=== PATIENT | female | born 1980 | race Caucasian/White ===

== ENCOUNTER 2019-05-28 14:39 | Emergency (ER) | payer MEDICAID ==
[~2019-05-28] VITALS: Ht 144.8 cm; Wt 86.6 kg
[2019-05-28 14:44] VITALS: BP 140/84
[2019-05-28] MEDS ORDERED: ONDANSETRON 4 MG/2 ML VIAL IVP ONE (15:15)
[2019-05-28] MEDS ORDERED: NACL 0.9% 1,000 ML IV ONE (15:15)
[2019-05-28] MEDS ORDERED: MORPHINE SULFATE 4 MG/ML SYR IVP ONE (16:05)
[2019-05-28 16:41] LABS: BASOPHILS # (AUTO) 0.1 K/uL (0.00-0.22); BASOPHILS % (AUTO) 1.1 % (0.0-2.0); EOSINOPHILS % (AUTO) 0.5 % (0.0-4.0); HEMATOCRIT 38.4 % (36-48); HEMOGLOBIN 13.1 g/dL (12.0-16.0); LYMPHOCYTES # (AUTO) 0.7 K/uL (2.5-16.5); LYMPHOCYTES % (AUTO) 11.6 % (20.5-51.1); MEAN CORPUSCULAR HEMOGLOBIN 29 pg (27-31); MEAN CORPUSCULAR HGB CONC 34 g/dL (33-37); MEAN CORPUSCULAR VOLUME 84.3 fL (80-94); MONOCYTES # (AUTO) 0.2 K/uL (0.8-1.0); MONOCYTES % (AUTO) 4.1 % (1.7-9.3); NEUTROPHILS # (AUTO) 4.9 K/uL (1.8-7.7); NEUTROPHILS % (AUTO) 82.7 % (42.2-75.2); PLATELET COUNT (AUTO) 179 K/uL (140-450); RED BLOOD CELL COUNT(AUTO) 4.56 MIL/uL (4.20-5.40); RED CELL DISTRIBUTION WIDTH 13.6 % (11.6-13.7)
[2019-05-28 17:10] LABS: ALBUMIN 3.3 g/dL (3.4-5.0); ANION GAP 13.6 (8-16); CREATININE 0.6 mg/dL (0.6-1.3); POTASSIUM 3.6 mmol/L (3.5-5.1); TOTAL BILIRUBIN 0.5 mg/dL (0.0-1.0)
[2019-05-28] MEDS ORDERED: KETOROLAC 30 MG/ML VIAL IVP ONE (17:15)
[2019-05-28] MEDS ORDERED: ACETAMINOPHEN EXTRA STRENGTH 500 MG TAB PO ONE (17:15)
[2019-05-28] MEDS ORDERED: ALUMINUM HYD/MAG/SIMETHICONE 30 ML, DICYCLOMINE HCL LIQUID 20 MG, LIDOCAINE VISCOUS 2% ... PO ONE ×3 (17:55)
[2019-05-28 18:51] VITALS: BP 108/56
== END 2019-05-28 18:51 | disposition home or self-care (01) ==
LOC: MED 14:39
DX: R11.2 Nausea with vomiting, unspecified (principal); R10.13 Epigastric pain; Z98.890 Other specified postprocedural states
CPT/HCPCS: 36415; 80053; 81002; 81025; 83690; 85025; 96361; 96374; 96375; 99283; J1885; J2270; J2405

== ENCOUNTER 2020-03-12 12:44 | Emergency (ER) | payer MEDICAID ==
[~2020-03-12] VITALS: Ht 144.8 cm; Wt 87.1 kg
[2020-03-12 12:45] VITALS: BP 181/108
--- NOTE | 2020-03-12 12:52 | NUR ---
Pt ambulated to bed 2.
--- NOTE | 2020-03-12 13:01 | NUR ---
Dr. Platt is evaluating the patient at bedside.
[2020-03-12] MEDS ORDERED: KETOROLAC 30 MG/ML VIAL IM ONE (13:10)
--- NOTE | 2020-03-12 13:19 | NUR ---
39 Y/O F C/C LEFT WRIST PAIN X 2 WEEKS. PER PT PAIN 10/10, SHARP SENSATION. ROM/CMS WNL. PT HX OF RIGHT WRIST SX OF CARPAL TUNNEL 2015. PT NKA. NO HX. NO RX. NO NVD. SIDE RAIL X1.
[2020-03-12 14:33] VITALS: BP 160/92
--- NOTE | 2020-03-12 14:34 | NUR ---
Patient discharged with v/s stable. Written and verbal after care instructions given and explained. Patient verbalized understanding. Ambulatory with steady gait. All questions addressed prior to discharge. Advised to follow up with PMD.
== END 2020-03-12 14:34 | disposition home or self-care (01) ==
LOC: MED 12:44
DX: G56.02 Carpal tunnel syndrome, left upper limb (principal)
CPT/HCPCS: 29125; 81025; 96372; 99283; J1885

== ENCOUNTER 2021-02-12 16:09 | Emergency (ER) | payer MEDICAID ==
[~2021-02-12] VITALS: Ht 144.8 cm; Wt 93.9 kg
[2021-02-12 17:10] VITALS: BP 162/113
[2021-02-12 17:41] LABS: BASOPHILS % (AUTO) 0.6 % (0.0-2.0); EOSINOPHILS # (AUTO) 0.1 K/uL (0-0.4); EOSINOPHILS % (AUTO) 1.6 % (0.0-4.0); HEMATOCRIT 37.1 % (36-48); HEMOGLOBIN 12.8 g/dL (12.0-16.0); LYMPHOCYTES # (AUTO) 2.7 K/uL (2.5-16.5); LYMPHOCYTES % (AUTO) 37.2 % (20.5-51.1); MEAN CORPUSCULAR HEMOGLOBIN 29 pg (27-31); MEAN CORPUSCULAR HGB CONC 35 g/dL (33-37); MEAN CORPUSCULAR VOLUME 84.7 fL (80-94); MONOCYTES # (AUTO) 0.5 K/uL (0.8-1.0); MONOCYTES % (AUTO) 6.5 % (1.7-9.3); NEUTROPHILS # (AUTO) 3.9 K/uL (1.8-7.7); NEUTROPHILS % (AUTO) 54.1 % (42.2-75.2); PLATELET COUNT (AUTO) 204 K/uL (140-450); RED BLOOD CELL COUNT(AUTO) 4.38 MIL/uL (4.20-5.40); RED CELL DISTRIBUTION WIDTH 14.1 % (11.6-13.7); WHITE BLOOD COUNT (AUTO) 7.3 K/uL (4.8-10.8)
[2021-02-12 17:57] LABS: ALBUMIN 3.6 g/dL (3.4-5.0); CARBON DIOXIDE 27.5 mmol/L (21-32); CREATININE 0.7 mg/dL (0.6-1.3); POTASSIUM 3.5 mmol/L (3.5-5.1); TOTAL BILIRUBIN 0.3 mg/dL (0.0-1.0)
[2021-02-12] MEDS ORDERED: IBUP-2213 PO (19:08)
== END 2021-02-12 20:10 | disposition home or self-care (01) ==
LOC: MED 16:09
DX: R60.0 Localized edema (principal); R03.0 Elevated blood-pressure reading, without diagnosis of hypertension
CPT/HCPCS: 36415; 71045; 80053; 81002; 81025; 83880; 85025; 99284

== ENCOUNTER 2021-06-14 16:25 | Emergency (ER) | payer MEDICAID ==
[~2021-06-14] VITALS: Ht 170.2 cm; Wt 93.5 kg
[~2021-06-14 16:25] MED LIST: IBUP-2213 PO
[2021-06-14 16:33] VITALS: BP 142/82
--- NOTE | 2021-06-14 16:36 | NUR ---
PATIENT AMBULATED TO BED 10.
--- NOTE | 2021-06-14 16:55 | NUR ---
40 Y/O FEMALE BIB SELF. PATIENT PRESENTS TO ED WITH HEAD PAIN, ABD TENDERNESS AND BLOATING, AND LOWER EXTREMETY EDEMA X2 DAYS. PT STATES HER HEAD PAIN RADIATES FROM THE BACK TO HER EYES. CMS PRESENT IN ALL LIMBS; DENIES N/V/D; SKIN IS PINK/WARM/DRY; AAOX4 WITH EVEN AND STEADY GAIT; HR EVEN AND REGULAR; PT DENIES ANY FEVER, CP, SOB, OR COUGH AT THIS TIME; PATIENT STATES CONSTANT PAIN OF 6/10 AT THIS TIME; DIZZINESS; VSS; PATIENT SEATED ON BED; HOB ELEVATED; BEDRAILS UP X1; BED DOWN. ER MD MADE AWARE OF PT STATUS. NO PMH NKA NO MEDS
--- NOTE | 2021-06-14 17:08 | NUR ---
ER AT BEDSIDE
[2021-06-14] MEDS ORDERED: KETOROLAC 60 MG/2 ML VIAL IM ONE (17:10)
[2021-06-14] MEDS ORDERED: IBUP-2213 PO (17:35)
[2021-06-14 17:54] VITALS: BP 142/82
--- NOTE | 2021-06-14 17:54 | NUR ---
Patient discharged with v/s stable. Written and verbal after care instructions given FOR GENERAL HEADACHE WITHOUT A CAUSE AND PERIPHERAL EDEMA and explained. Patient alert, oriented and verbalized understanding of instructions. Ambulatory with steady gait. All questions addressed prior to discharge. ID band removed. Patient advised to follow up with PMD. Rx of IBUPROFEN given. Patient educated on indication of medication including possible reaction and side effects. Opportunity to ask questions provided and answered.
== END 2021-06-14 17:54 | disposition home or self-care (01) ==
LOC: MED 16:25
DX: R51.9 Headache, unspecified (principal); R60.0 Localized edema; Z79.899 Other long term (current) drug therapy; Z98.890 Other specified postprocedural states
CPT/HCPCS: 81002; 81025; 96372; 99283; J1885

== ENCOUNTER 2021-07-27 15:33 | Emergency (ER) | payer MEDICAID ==
[~2021-07-27] VITALS: Ht 144.8 cm; Wt 94.3 kg
[2021-07-27 16:42] VITALS: BP 168/90
[2021-07-27] MEDS ORDERED: PHEN177S23 PO (17:00)
[2021-07-27] MEDS ORDERED: AZIT250T4 PO (17:00)
[2021-07-27] MEDS ORDERED: PRED20TA5 PO (17:00)
[2021-07-27 17:22] VITALS: BP 168/90
--- NOTE | 2021-07-27 17:22 | NUR ---
Patient discharged with v/s stable. Written and verbal after care instructions given and explained. Patient alert, oriented and verbalized understanding of instructions. Ambulatory with steady gait. All questions addressed prior to discharge. ID band removed. Patient advised to follow up with PMD. Rx of prednisone, phenol, azithromycin (sent) given. Patient educated on indication of medication including possible reaction and side effects. Opportunity to ask questions provided and answered.
== END 2021-07-27 17:16 | disposition home or self-care (01) ==
LOC: MED 15:33
DX: B34.9 Viral infection, unspecified (principal); Z20.822 Contact with and (suspected) exposure to COVID-19
CPT/HCPCS: 99283; U0003

== ENCOUNTER 2021-08-13 06:35 | Emergency (ER) | payer MEDICAID ==
[~2021-08-13] VITALS: Ht 152.4 cm; Wt 81.6 kg
[~2021-08-13 06:35] MED LIST changes: +AZIT250T4 PO; +PHEN177S23 PO; +PRED20TA5 PO
[2021-08-13 06:39] VITALS: BP 167/81
--- NOTE | 2021-08-13 06:44 | NUR ---
TO LOBBY FOLLOWING TRIAGE
[2021-08-13] MEDS ORDERED: ACET-8386 PO (07:41)
[2021-08-13] MEDS ORDERED: ONDA-188 PO (07:43)
--- NOTE | 2021-08-13 07:45 | NUR ---
Patient discharged with v/s stable. Written and verbal after care instructions ABOUT TENSION HEADACHE given and explained. Patient alert, oriented and verbalized understanding of instructions. Ambulatory with steady gait. All questions addressed prior to discharge. ID band removed. Patient advised to follow up with PMD. Rx of ZOFRAN AND NORCO 5-325 given. Patient educated on indication of medication including possible reaction and side effects. Opportunity to ask questions provided and answered. PT D/C BY DR COTE
== END 2021-08-13 07:45 | disposition home or self-care (01) ==
LOC: MED 06:35
DX: G44.209 Tension-type headache, unspecified, not intractable (principal); Z79.899 Other long term (current) drug therapy; Z79.891 Long term (current) use of opiate analgesic; Z79.2 Long term (current) use of antibiotics; Z79.1 Long term (current) use of non-steroidal anti-inflammatories (NSAID)
CPT/HCPCS: 70450; 99284

== ENCOUNTER 2021-12-24 01:19 | Emergency (ER) | payer MEDICAID ==
[~2021-12-24] VITALS: Ht 144.8 cm; Wt 86.2 kg
[~2021-12-24 01:19] MED LIST changes: +ACET-8386 PO; +ONDA-188 PO
[2021-12-24 01:28] VITALS: BP 156/77
--- NOTE | 2021-12-24 01:39 | NUR ---
PT TAKEN TO BED 3
--- NOTE | 2021-12-24 01:40 | NUR ---
Patient BIB by family from home. C/O abdominal pain x 3 days. Patient reported, had mid abdominal pain, pain rate 8/10, nausea, vomiting, constipation for 3 days.
[2021-12-24] MEDS ORDERED: ONDANSETRON 4 MG ODT PO ONE (01:55)
--- NOTE | 2021-12-24 01:57 | NUR ---
Blood for labwork drawn from left arm per bishop. Patient tolerated well. Addendum: 12/24/21 at 0203 by MEMO Blood for labwork drawn from left arm per dry heat room attendant. Patient tolerated well.
--- NOTE | 2021-12-24 02:07 | NUR ---
Patient taken to X-ray via wheel chair.
[2021-12-24 02:10] LABS: BASOPHILS # (AUTO) 0.1 K/uL (0.00-0.22); EOSINOPHILS # (AUTO) 0.1 K/uL (0-0.4); EOSINOPHILS % (AUTO) 1.7 % (0.0-4.0); HEMOGLOBIN 12.8 g/dL (12.0-16.0); LYMPHOCYTES # (AUTO) 2.1 K/uL (2.5-16.5); LYMPHOCYTES % (AUTO) 37.6 % (20.5-51.1); MEAN CORPUSCULAR HEMOGLOBIN 28 pg (27-31); MEAN CORPUSCULAR HGB CONC 35 g/dL (33-37); MEAN CORPUSCULAR VOLUME 82.1 fL (80-94); MONOCYTES # (AUTO) 0.6 K/uL (0.8-1.0); MONOCYTES % (AUTO) 9.9 % (1.7-9.3); NEUTROPHILS # (AUTO) 2.8 K/uL (1.8-7.7); NEUTROPHILS % (AUTO) 49.8 % (42.2-75.2); PLATELET COUNT (AUTO) 201 K/uL (140-450); RED BLOOD CELL COUNT(AUTO) 4.51 MIL/uL (4.20-5.40); RED CELL DISTRIBUTION WIDTH 14.3 % (11.6-13.7); WHITE BLOOD COUNT (AUTO) 5.7 K/uL (4.8-10.8)
[2021-12-24 02:21] LABS: ANION GAP 9.2 (8-16); CARBON DIOXIDE 27.1 mmol/L (21-32); POTASSIUM 3.3 mmol/L (3.5-5.1)
--- NOTE | 2021-12-24 02:34 | NUR ---
Dr. Casillas examining patient.
[2021-12-24] MEDS ORDERED: KETOROLAC 30 MG/ML VIAL IM ONE (02:45)
--- NOTE | 2021-12-24 02:47 | NUR ---
Patient taken to CT scan via wheel chair
[2021-12-24 03:00] LABS: ALBUMIN 3.3 g/dL (3.4-5.0); CREATININE 0.8 mg/dL (0.6-1.3); TOTAL BILIRUBIN 0.4 mg/dL (0.0-1.0)
--- NOTE | 2021-12-24 03:18 | NUR ---
Patient appears to be resting comfortably in bed. Vital Signs within normal limits. Respirations even and unlabored.
[2021-12-24] MEDS ORDERED: POTASSIUM CHLORIDE 10 MEQ TABER PO ONE (05:05)
[2021-12-24] MEDS ORDERED: NAPR-1704 PO (05:56)
[2021-12-24] MEDS ORDERED: BEN10 PO (05:56)
[2021-12-24 06:05] VITALS: BP 142/72
--- NOTE | 2021-12-24 06:05 | NUR ---
Patient discharged with v/s stable. Written and verbal after care instructions given and explained for abdominal pain . Patient alert, oriented and verbalized understanding of instructions. Ambulatory with steady gait. All questions addressed prior to discharge. ID band removed. Patient advised to follow up with PMD. Rx of Bentyl and Naprosyn given. Patient educated on indication of medication including possible reaction and side effects. Opportunity to ask questions provided and answered.
== END 2021-12-24 06:05 | disposition home or self-care (01) ==
LOC: MED 01:19
DX: R10.11 Right upper quadrant pain (principal); R10.31 Right lower quadrant pain; R03.0 Elevated blood-pressure reading, without diagnosis of hypertension; K76.0 Fatty (change of) liver, not elsewhere classified; R11.2 Nausea with vomiting, unspecified; K59.00 Constipation, unspecified; Z98.890 Other specified postprocedural states; Z79.899 Other long term (current) drug therapy; Z79.891 Long term (current) use of opiate analgesic; Z79.2 Long term (current) use of antibiotics
CPT/HCPCS: 36415; 74022; 74176; 80053; 81025; 83690; 85025; 96372; 99285; J1885; Q0162

== ENCOUNTER 2022-07-01 16:44 | Emergency (ER) | payer MEDICAID ==
[~2022-07-01] VITALS: Ht 144.8 cm; Wt 83.9 kg
[~2022-07-01 16:44] MED LIST changes: -ACET-8386 PO; +ACET-8905 PO; +BEN10 PO; +NAPR-1704 PO
[2022-07-01 16:50] VITALS: BP 172/95
--- NOTE | 2022-07-01 17:01 | NUR ---
PT AMBULATED TO LOBBY. URINE COLLECTED
--- NOTE | 2022-07-01 17:11 | NUR ---
41/F WALKED IN C/O RIGHT SIDED BACK PAIN ONSET 3 WEEKS BUT GOT WORSE LAST NIGHT. PT DESCRIBES PAIN CONSTANT 10/10. DENIES FALL OR INJURY. AAO4, AMBULATORY, VITALS STABLE, ON ROOM AIR, NO ACUTE DISTRESS NOTED. PMH: DENIES
[2022-07-01] MEDS ORDERED: KETOROLAC 30 MG/ML VIAL IM ONE (17:45)
[2022-07-01] MEDS ORDERED: CYCL-711 PO (19:00)
[2022-07-01] MEDS ORDERED: IBUP-2213 PO (19:00)
[2022-07-01] MEDS ORDERED: LIDO5TDM59 TP (19:00)
[2022-07-01] MEDS ORDERED: KETOROLAC 30 MG/ML VIAL ONE (20:33)
[2022-07-01 21:00] VITALS: BP 172/95
--- NOTE | 2022-07-01 21:00 | NUR ---
Patient discharged with v/s stable. Written and verbal after care instructions given and explained. Patient alert, oriented and verbalized understanding of instructions. Ambulatory with steady gait. All questions addressed prior to discharge. ID band removed. Patient advised to follow up with PMD. Rx of FLEXERIL, IBUPROFEN, LIDODERM given. Patient educated on indication of medication including possible reaction and side effects. Opportunity to ask questions provided and answered.
== END 2022-07-01 21:00 | disposition home or self-care (01) ==
LOC: MED 16:44
DX: M62.830 Muscle spasm of back (principal)
CPT/HCPCS: 72080; 96372; 99283; J1885

== ENCOUNTER 2023-08-04 15:37 | Emergency (ER) | payer MEDICAID ==
[~2023-08-04] VITALS: Ht 152.4 cm; Wt 90.7 kg
[~2023-08-04 15:37] MED LIST changes: +CYCL-711 PO; +DICL20GE TP; +LIDO5TDM59 TP
[2023-08-04 15:54] VITALS: BP 150/79; PULSE 84; RESP 18; TEMP 97.8; O2SAT 98
[2023-08-04] MEDS ORDERED: KETOROLAC 30 MG/ML VIAL IM ONE (17:15)
[2023-08-04] MEDS ORDERED: NAPR-1704 PO (17:19)
[2023-08-04] MEDS ORDERED: CAPS1ADH5 TP (17:19)
== END 2023-08-04 17:30 | disposition home or self-care (01) ==
LOC: MED 15:37
DX: M25.511 Pain in right shoulder (principal); Z98.890 Other specified postprocedural states; Z79.899 Other long term (current) drug therapy; Z79.1 Long term (current) use of non-steroidal anti-inflammatories (NSAID); Z79.2 Long term (current) use of antibiotics
CPT/HCPCS: 73030; 96372; 99283; J1885